=== PATIENT | male | born 1980 | race African-American/Black ===

== ENCOUNTER 2020-11-23 10:11 | Emergency (ER) | payer OTHER, SELFPAY ==
[2020-11-23 10:22] VITALS: BP 111/89; PULSE 79; RESP 16; TEMP 36.7; O2SAT 100
--- NOTE | 2020-11-23 10:40 | ED.EXTPRO ---
HPI - Extremity Problem General Chief complaint: Extremity Problem,Nontraumatic Stated complaint: R KNEE PAIN/SWELLING Source: patient and RN notes reviewed Mode of arrival: ambulatory History of Present Illness HPI Narrative: Mr. Reyes presents with right knee pain and swelling started about 530 yesterday. Patient states he has been walking more than usual does bend down frequently with his job. He has tried Tylenol [id number] he has tried ice started a heating pad this morning. States ice works better than heat denies fever denies chills denies numbness denies tingling sensation is intact in his distal extremity. Right knee is warm to touch. Related Data Allergies Allergy/AdvReac Type Severity Reaction Status Date / Time No Known Allergies Allergy Verified 11/23/20 10:19 Review of Systems Review of Systems: CONSTITUTIONAL: Denies body aches, fever, chills, or sweats. EYES: Denies visual changes, redness, or discharge. ENT: Denies rhinorrhea, congestion, sore throat, or otalgia. CARDIOVASCULAR: Denies chest pain, palpitations, or edema. RESPIRATORY: Denies cough or dyspnea. GASTROINTESTINAL: Denies abdominal pain, nausea, vomiting, or diarrhea. GENITOURINARY: Denies dysuria or hematuria. SKIN: Denies rash, itching, or wounds. MUSCULOSKELETAL: Positive for right knee pain, swelling, NEUROLOGIC: Denies headache, numbness, tingling, or weakness. PSYCH: Denies depression or anxiety. All systems reviewed & are unremarkable except as noted in HPI and below PMFSH Comments Reviewed. Exam Narrative: GENERAL: Well-appearing, well-nourished, and in no acute distress. HEAD: Normocephalic, atraumatic. EYES: EOMI. No redness or drainage. Conjunctivae normal. ENT: Mucous membranes pink and moist. Nares clear. No rhinorrhea. TMs normal bilaterally. Throat normal. Uvula midline. NECK: Normal AROM. Supple. No lymphadenopathy. CHEST: No respiratory distress. Clear to auscultation. MUSCULOSKELETAL: Right knee edematous anterior patella, warm to touch, no erythema noted. EXTREMITIES: Normal range of motion. right pedal pulse 2+, sensation intact. SKIN: Warm, dry, no rash. Capillary refill normal. Normal skin turgor. NEURO: No focal deficits. Alert and oriented x3. Gait steady. PSYCH: Normal affect. No signs of depression or anxiety. Course Vital Signs Vital signs: Vital Signs Temperature 36.7 C 11/23/20 10:22 Pulse Rate 79 11/23/20 10:22 Respiratory Rate 16 11/23/20 10:22 Blood Pressure 111/89 11/23/20 10:22 Pulse Oximetry 100 11/23/20 10:22 Temperature 36.7 C 11/23/20 10:22 Pulse Rate 79 11/23/20 10:22 Respiratory Rate 16 11/23/20 10:22 Blood Pressure 111/89 11/23/20 10:22 Pulse Oximetry 100 11/23/20 10:22 Reviewed MDM - Extremity (Nontraumatic) Differential Diagnosis Differential diagnosis: Likely gout and other (Right knee sprain, bursitis, ) Critical Care Time Critical Care Time Critical Care Time: No Discharge Plan Discharge Clinical Impression: Bursitis Patient Disposition: Home, Self-Care Condition: Stable Instructions: Antibiotic Form, Knee Bursitis (ED) Additional Instructions: Take Prednisone as prescribed. Follow up with primary care physician in 7-10 days if no improvement, go to ER i for fever, chills, or erythema to right knee. Ice to area. May take Tylenol or aleve for pain. Take antibiotic as directed. Prescriptions: New prednisone 50 mg tablet 50 mg PO DAILY Qty: 7 RF: 0 cephalexin 500 mg capsule 500 mg PO Q12H Qty: 14 RF: 0 Follow-up/Referrals: PHYSICIAN,STORE MANAGEMENT TRAINEE [Primary Care Provider] - 1 Week (May follow up with Dr. David in one week if no improvement noted. ) David David MD [Physician] - (Follow up in one week if no improvement noted. ) Stand Alone Forms: Work/School Release IP Time of Disposition: 10:53
== END 2020-11-23 11:03 | disposition home or self-care (01) ==
PROVIDERS: Emergency Provider Nurse Practitioner Family
DX: M71.9 Bursopathy, unspecified (principal)
CPT/HCPCS: 99213; G0463